=== PATIENT | female | born 1950 | race Caucasian/White ===

== ENCOUNTER → 2017-08-05 | Outpatient (CLI) | payer MEDICARE ==
[~2017-08-05] MED LIST: BONIVA150 MG PO; KEFLEX500 M1 PO; SINGULAIR10 MG PO; VAGIFEM10 MCG VG; ZYRTEC10 M2 PO
[2017-08-05 10:00] LABS: BUN 16 mg/dL (7-18)
[2017-08-05 10:02] LABS: GFR (ESTIMATED) 83 ML/MIN (59-)
== END ==
LOC: LAB 08:38
PROVIDERS: Family Medicine
DX: Z00.00 Encounter for general adult medical examination without abnormal findings (principal); Z01.818 Encounter for other preprocedural examination; Z79.899 Other long term (current) drug therapy

== ENCOUNTER 2017-08-08 09:32 | Day surgery (SDC) | payer MEDICARE ==
[~2017-08-08] VITALS: Ht 157.5 cm; Wt 59.0 kg
--- NOTE | 2017-08-08 11:02 | Operative Note ---
Upper GI Endoscopy Procedure date: 08/08/17 Date of : 50 Procedure:Upper GI Endoscopy Esophagogastroduodenoscopy with cold biopsies Indications: Mrs. Metcalf is a 67-year-old female with short segment Lowery's esophagus and chronic reflux. She did have an upper endoscopy in July 2011 which showed a tongue of short segment Lowery's esophagus. Her last EGD on August 19, 2014 showed a couple of tongues of salmon-colored mucosa that were biopsies and confirmed short segment Lowery's without dysplasia. The patient does take Prilosec for her gastroesophageal reflux disease. The patient reports no dysphagia, heartburn or reflux. The patient did have a normal colonoscopy in March 2015. Performing Provider: Keke Rogers MD Referring Provider: Edmar Rubin M.D. Sedation: MAC sedation Procedure: Prior to the procedure, a history and physical exam was performed, and patients medications and allergies were reviewed. The risks and benefits of the procedure and the sedation options and risks were discussed with the patient. All questions were answered and informed consent was obtained. The patient was brought to the procedure room. Patient identification and proposed procedure were verified by the physician and the nurse. The patient was placed in a left lateral decubitus position and the scope was passed under direct vision. Throughout the procedure, the patient's blood pressure, pulse, and oxygen saturations were monitored continuously. The endoscope was introduced through the mouth, and advanced to the second part of duodenum. The upper GI endoscopy was accomplished without difficulty. The patient tolerated the procedure well. Findings: The scope was passed directly into the upper esophagus and advanced to the third portion of the duodenum. The post bulbar duodenum and duodenal bulb were normal with normal mucosa and conniventes. The scope was withdrawn through a normal duodenal bulb and pylorus into the stomach. The remainder of the antrum, body and fundus of the stomach were grossly normal. Upon retroflexion there was a very small sliding 1-2 cm hiatal hernia. The scope was then withdrawn into the esophagus. There was one short tongue of salmon-colored mucosa that was examined more carefully using NBI (narrow band imaging) and selective cold biopsies were obtained. There was no evidence of reflux esophagitis or stricturing. The remainder of the esophageal mucosa was normal. Immediate complications: None EBL (ml): 0 Impression: 1. Very short segment Lowery's esophagus/single tongue of Lowery's with 1-2 cm hiatal hernia Recommendations: I would continue Prilosec as long-term maintenance therapy. If there is no evidence of dysplasia, I would recommend surveillance in 3-5 years. at [id number]
[2017-08-08 11:58] VITALS: BP 113/72
== END 2017-08-08 11:42 | disposition home or self-care (01) ==
LOC: SDC 09:32
PROVIDERS: Internal Medicine Gastroenterology
PROC: 0DB58ZX Excision of Esophagus, Via Natural or Artificial Opening Endoscopic, Diagnostic (ICD-10-PCS; principal; 2017-08-08 10:30)
DX: K22.719 Barrett's esophagus with dysplasia, unspecified (principal); K21.9 Gastro-esophageal reflux disease without esophagitis; K44.9 Diaphragmatic hernia without obstruction or gangrene; K31.89 Other diseases of stomach and duodenum; Z79.899 Other long term (current) drug therapy